=== PATIENT | male | born 1995 | race Caucasian/White ===

== ENCOUNTER 2016-08-04 12:26 | Emergency (ER) | payer OTHER ==
[~2016-08-04] VITALS: Ht 170.2 cm; Wt 67.1 kg
[2016-08-04 12:27] VITALS: BP 134/73
[2016-08-04] MEDS ORDERED: ACETAMINOPHEN 325 MG TAB PO ONE (12:45)
--- NOTE | 2016-08-04 13:08 | REP ---
Clinical: Crush injury. Technique: AP, lateral, bilateral oblique views of the right third digit. Findings: No obvious acute fracture dislocation. Mild swelling overlies the terminal tuft/distal phalanx. No subcutaneous emphysema or radiodense foreign body. Impression: No obvious acute fracture or dislocation. Signed by Jag Bergeron MD 08/04/2016 12:59 P
== END 2016-08-04 13:25 | disposition home or self-care (01) ==
LOC: M ED 13:19
DX: S60.041A Contusion of right ring finger without damage to nail, initial encounter (principal); W23.0XXA Caught, crushed, jammed, or pinched between moving objects, initial encounter; Y92.89 Other specified places as the place of occurrence of the external cause; Y93.9 Activity, unspecified; Y99.0 Civilian activity done for income or pay

== ENCOUNTER 2016-08-06 19:56 | Emergency (ER) | payer OTHER ==
[~2016-08-06] VITALS: Ht 170.2 cm; Wt 70.3 kg
[2016-08-06 19:56] VITALS: BP 115/73
[2016-08-06] MEDS ORDERED: PERC5TAB6 PO (22:10)
[2016-08-06] MEDS ORDERED: OXYCODONE/APAP 5MG/325MG(BULK FOR ED) 1 TABLET PO ONE (22:15)
== END 2016-08-06 22:49 | disposition home or self-care (01) ==
LOC: M ED 21:07
DX: S60.10XA Contusion of unspecified finger with damage to nail, initial encounter (principal); X58.XXXA Exposure to other specified factors, initial encounter; Y92.9 Unspecified place or not applicable; Y93.9 Activity, unspecified; Y99.9 Unspecified external cause status

== ENCOUNTER → 2018-06-30 | Outpatient (CLI) | payer OTHER ==
[~2018-06-30] MED LIST: IBUP80TA PO; NAPR-50 PO; NAPR250T4 PO; PERC5TAB12 PO
--- NOTE | 2018-06-30 13:51 | REP ---
Clinical: Right rib pain Technique: Frontal view of the chest with multiple views of the right hemithorax. Findings: Frontal view of the chest demonstrates no acute cardiopulmonary process. Blunting of the costophrenic angles may represent chronic change and less likely acute pleural reaction. Multiple views of the right hemithorax demonstrates no obvious acute rib fracture or pathology. Impression: No right rib fracture identified. Electronically Signed by Jag Bergeron MD 06/30/2018 01:43 P
== END ==
LOC: M RAD 11:33
PROVIDERS: ATTEND Physician Assistant Medical
DX: R07.81 Pleurodynia (principal)

== ENCOUNTER 2018-07-01 15:42 | Emergency (ER) | payer OTHER ==
[~2018-07-01] VITALS: Ht 170.2 cm; Wt 86.9 kg
[~2018-07-01 15:42] MED LIST changes: -IBUP80TA PO; -NAPR-50 PO; -NAPR250T4 PO
[2018-07-01] MEDS ORDERED: NAPR250T4 PO (15:53)
[2018-07-01] MEDS ORDERED: KETOROLAC 30 MG/ML VIAL (J1885) IM ONE (17:45)
[2018-07-01] MEDS ORDERED: NAPR-50 PO (18:35)
[2018-07-01] MEDS ORDERED: IBUP80TA PO (19:09)
[2018-07-01 19:13] VITALS: BP 125/91
== END 2018-07-01 19:14 | disposition home or self-care (01) ==
LOC: M ED 15:42
DX: S20.211A Contusion of right front wall of thorax, initial encounter (principal); W19.XXXA Unspecified fall, initial encounter; Y92.89 Other specified places as the place of occurrence of the external cause
CPT/HCPCS: 85379; 96372; 99283; J1885

== ENCOUNTER 2024-07-12 10:46 | Emergency (ER) | payer MEDICAID, OTHER, SELFPAY ==
[~2024-07-12] VITALS: Ht 170.2 cm; Wt 89.9 kg
[~2024-07-12 10:46] MED LIST changes: +IBUP80TA PO; +NAPR-837 PO; +NAPR-849 PO
[2024-07-12] MEDS ORDERED: AMOX875T (11:04)
[2024-07-12] MEDS ORDERED: ACET-907 PO (11:04)
[2024-07-12 11:42] LABS: BASO % 0.2 % (0.0-1.0); EOS % 0.2 % (0.0-3.0); HEMATOCRIT 45.4 % (42.0-52.0); HEMOGLOBIN 15.8 g/dl (13.5-17.5); LYMPH # 1.4 10^3/uL (1.5-5.0); LYMPH % 11.1 % (24.0-44.0); MEAN CORPUSCULAR HEMOGLOBIN 30.8 pg (27.0-33.0); MEAN CORPUSCULAR HGB CONC 34.8 g/dl (32.0-36.5); MEAN CORPUSCULAR VOLUME 88.5 fl (80.0-96.0); MONO # 0.8 10^3/uL (0.0-0.8); MONO % 6.6 % (2.0-8.0); NEUTROPHILS % 81.6 % (36.0-66.0); PLATELET COUNT, AUTOMATED 286 10^3/uL (150-450); RED BLOOD COUNT 5.13 10^6/uL (4.30-6.10); WHITE BLOOD COUNT 12.2 10^3/uL (4.0-10.0)
[2024-07-12 12:01] LABS: BLOOD UREA NITROGEN 13 MG/DL (9-23); CALCIUM LEVEL 9.6 MG/DL (8.5-10.1); CARBON DIOXIDE LEVEL 23 MMOL/L (20-31); CHLORIDE LEVEL 105 MMOL/L (98-107); CREATININE FOR GFR 0.79 MG/DL (0.70-1.30); GLOMERULAR FILTRATION RATE > 60.0 (>60); GLUCOSE, FASTING 100 MG/DL (60-100); POTASSIUM SERUM 4.3 MMOL/L (3.5-5.1); SODIUM LEVEL 138 MMOL/L (136-145)
[2024-07-12 14:10] LABS: C REACTIVE PROTEIN QUANTITATIV 6.61 MG/DL (<1.0)
[2024-07-12] MEDS: NS (Normal Saline) 0.9% 1,000 ML IV ONE (14:10)
[2024-07-12] MEDS: KETOROLAC 30 MG/ML 1ML VIAL IV ONE (14:11)
[2024-07-12] MEDS: dexAMETHasone 20MG/5ML VIAL IV ONE (14:22)
[2024-07-12] MEDS ORDERED: ISOVUE-370 76% 100ML VIAL As Ordered ONE (14:30)
[2024-07-12] MEDS: AMPICILLIN SOD/SULBACTAM SOD 3 GM in DEXTROSE 5% (D5W) MINI-BAG PLU 100 ML IV ONE ×2 (15:02→20:06)
[2024-07-12] MEDS ORDERED: AMOX875T2 PO (16:41)
[2024-07-12] MEDS ORDERED: MEDR4PAK PO (16:41)
[2024-07-12 20:21] VITALS: BP 137/89; TEMP 99; O2SAT 97
== END 2024-07-12 20:51 | disposition home or self-care (01) ==
LOC: M ED 10:46
DX: K04.7 Periapical abscess without sinus (principal); L03.211 Cellulitis of face; F12.10 Cannabis abuse, uncomplicated; Z90.89 Acquired absence of other organs; Z79.2 Long term (current) use of antibiotics; Z79.1 Long term (current) use of non-steroidal anti-inflammatories (NSAID); Z79.899 Other long term (current) drug therapy
CPT/HCPCS: 70491; 80048; 83605; 85025; 85652; 86140; 87040; 96361; 96365; 96366; 96375; 99284; J0295; J1100; J1885; Q9967